=== PATIENT | female | born 1955 | race Caucasian/White ===

== ENCOUNTER 2020-01-04 12:38 | Emergency (ER) | payer OTHER ==
[~2020-01-04] VITALS: Ht 170.2 cm; Wt 81.6 kg
[2020-01-04 12:38] VITALS: BP_SYST 139
[2020-01-04] MEDS ORDERED: NACL 0.9% 1,000 ML IV ONE (13:00)
[2020-01-04 13:28] LABS: CALCIUM 8.7 mg/dL (8.4-11.0); CREATININE 0.81 mg/dL (0.55-1.30); POTASSIUM 4.2 mmol/L (3.5-5.1)
[2020-01-04 13:32] LABS: BASOPHILS # (AUTO) 0.1 K/uL (0.0-0.2); BASOPHILS % (AUTO) 1.1 % (0.0-2.0); EOSINOPHILS # (AUTO) 0.2 K/uL (0.0-0.4); EOSINOPHILS % (AUTO) 3.3 % (0.0-4.0); HEMATOCRIT 45.2 % (36-48); HEMOGLOBIN 15.1 g/dL (12.0-16.0); LYMPHOCYTES # (AUTO) 1.8 K/uL (1.0-5.5); LYMPHOCYTES % (AUTO) 27.1 % (20.5-51.5); MEAN CORPUSCULAR HEMOGLOBIN 32 pg (27-31); MEAN CORPUSCULAR HGB CONC 33 % (32-36); MEAN CORPUSCULAR VOLUME 96 fL (79.0-98.0); MONOCYTES # (AUTO) 0.5 K/uL (0.0-1.0); MONOCYTES % (AUTO) 7.6 % (1.7-9.3); NEUTROPHILS # (AUTO) 4.1 K/uL (1.8-7.7); NEUTROPHILS % (AUTO) 60.9 % (40.0-70.0); PLATELET COUNT (AUTO) 287 K/uL (130-430); RED CELL DISTRIBUTION WIDTH 13.5 % (9.0-15.0); WHITE BLOOD COUNT (AUTO) 6.7 K/uL (4.8-10.8)
[2020-01-04] MEDS ORDERED: KETOROLAC TROMETHAMINE 15 MG VIAL IVP ONE (14:15)
[2020-01-04 14:18] LABS: BILIRUBIN,URINE NEGATIVE (NEGATIVE); BLOOD, URINE NEGATIVE (NEGATIVE); CLARITY/URINE CLEAR (CLEAR); COLOR,URINE YELLOW (YELLOW); GLUCOSE,URINE NEGATIVE (NEGATIVE); KETONES,URINE NEGATIVE (NEGATIVE); LEUKOCYTE ESTERASE ,URINE 2+ (NEGATIVE); NITRITE, URINE NEGATIVE (NEGATIVE); PROTEIN URINE NEGATIVE (NEGATIVE); UROBILINOGEN,URINE 0.2 (0.2-1.0)
[2020-01-04 14:29] LABS: BACTERIA,URINE FEW /HPF (None Seen); MUCUS,URINE 1+ /LPF (None Seen)
[2020-01-04 14:48] VITALS: BP_SYST 139
== END 2020-01-04 14:48 | disposition home or self-care (01) ==
LOC: SED 12:38
DX: M62.838 Other muscle spasm (principal)
CPT/HCPCS: 36415; 80048; 81000; 85025; 87086; 96374; 99283; J1885; J7030

== ENCOUNTER 2020-06-27 09:39 | Emergency (ER) | payer OTHER ==
[~2020-06-27] VITALS: Ht 170.2 cm; Wt 78.9 kg
[2020-06-27 09:39] VITALS: BP_SYST 147
--- NOTE | 2020-06-27 09:39 | NUR ---
Patient to ER bed 4 to gown for evaluation. Side rails up. Report given to ZAKIYA Davila.
--- NOTE | 2020-06-27 09:45 | NUR ---
ER Dr. Moyer at bedside examining patient.
--- NOTE | 2020-06-27 10:22 | NUR ---
Patient given written and verbal discharge instructions and verbalizes understanding. ER MD discussed with patient the results and treatment provided. Patient in stable condition. ID arm band removed. Rx of Naprosyn given. Patient educated on pain management and to follow up with PMD. Pain Scale 4. Opportunity for questions provided and answered. Medication side effect fact sheet provided.
--- NOTE | 2020-06-27 10:22 | NUR ---
Right wrist splint placed. CMS +.
[2020-06-27 10:28] VITALS: BP_SYST 147
== END 2020-06-27 10:28 | disposition home or self-care (01) ==
LOC: SED 09:39
DX: S63.501A Unspecified sprain of right wrist, initial encounter (principal); F17.200 Nicotine dependence, unspecified, uncomplicated; W01.0XXA Fall on same level from slipping, tripping and stumbling without subsequent striking against object, initial encounter; Y93.89 Activity, other specified; Y92.89 Other specified places as the place of occurrence of the external cause; Y99.8 Other external cause status
CPT/HCPCS: 99283

== ENCOUNTER 2024-05-27 15:34 | Emergency (ER) | payer BC, OTHER ==
[~2024-05-27] VITALS: Ht 172.7 cm; Wt 81.6 kg
[2024-05-27 15:34] VITALS: BP_SYST 151; PULSE 101; RESP 18; TEMP 98.2; O2SAT 98
[2024-05-27] MEDS: KETOROLAC TROMETHAMINE 30 MG VIAL IM ONE (16:51)
[2024-05-27] MEDS: CYCLOBENZAPRINE HCL 10 MG TABLET (FLEXERIL) PO ONE (16:53)
[2024-05-27] MEDS: LIDOCAINE PATCH 5% 1 EA TP ONE (16:53)
[2024-05-27 17:41] LABS: BARBITURATE, URINE NEGATIVE (NEG <=200); BENZODIAZEPINE, URINE NEGATIVE (NEG <=150); CANNABINOID, URINE POSITIVE (NEG <=50); COCAINE, URINE NEGATIVE (NEG <=150); METHAMPHETAMINES SCREEN,URINE POSITIVE (NEG <=500); OPIATE, URINE NEGATIVE (NEG <=100); PHENCYCLIDINE SCREEN,URINE NEGATIVE (NEG <=25); UR TRICYCLIC ANTIDEPRESSANTS NEGATIVE (NEG <=300); URINE AMPHETAMINE POSITIVE (NEG <=500); URINE METHADONE NEGATIVE (NEG <=200); URINE OXYCODONE SCREEN NEGATIVE (NEG <=100)
[2024-05-27 17:45] LABS: BILIRUBIN,URINE NEGATIVE (NEGATIVE); BLOOD, URINE NEGATIVE (NEGATIVE); CLARITY/URINE CLOUDY (CLEAR); COLOR,URINE YELLOW (YELLOW); GLUCOSE,URINE NEGATIVE (NEGATIVE); KETONES,URINE NEGATIVE (NEGATIVE); LEUKOCYTE ESTERASE ,URINE 2+ (NEGATIVE); NITRITE, URINE NEGATIVE (NEGATIVE); PROTEIN URINE NEGATIVE (NEGATIVE); UROBILINOGEN,URINE 0.2 (0.2-1.0)
[2024-05-27 17:54] LABS: BACTERIA,URINE MANY /HPF (None Seen); MUCUS,URINE None Seen /LPF (None Seen); RBC,URINE 0-3 /HPF (0-3); URINE AMORPHOUS URATE 2+ /HPF (None Seen); WBC,URINE 20-50 /HPF (0-3)
== END 2024-05-27 17:25 | disposition left against medical advice (07) ==
LOC: SED 15:34
DX: M54.50 Low back pain, unspecified (principal); R03.0 Elevated blood-pressure reading, without diagnosis of hypertension; M25.562 Pain in left knee; M25.561 Pain in right knee; F17.200 Nicotine dependence, unspecified, uncomplicated; F12.90 Cannabis use, unspecified, uncomplicated; Z98.890 Other specified postprocedural states
CPT/HCPCS: 99285; 72131; 80307; 87086; 96372; 81001; J1885; 81000; 81015